=== PATIENT | male | born 1955 | race Caucasian/White ===

== ENCOUNTER 2018-02-03 12:23 | Emergency (ER) | payer OTHER ==
[~2018-02-03] VITALS: Ht 172.7 cm; Wt 73.0 kg
[2018-02-03] MEDS ORDERED: LIPITOR10 MG PO (12:30)
[2018-02-03] MEDS ORDERED: IMIPRAMINE HCL10 M2 PO (12:30)
[2018-02-03] MEDS ORDERED: ZESTRIL10 MG PO (12:30)
[2018-02-03 13:55] LABS: HEMATOCRIT 45.1 % (42.0-52.0); HEMOGLOBIN 15.1 gm/dL (14.0-18.0); MCH 31.6 pg (26.0-34.0); MCHC 33.4 g/dL (28.0-37.0); MCV 94.6 fL (80.0-100.0); MPV 7.4 fl. (7.2-11.1); NUCLEATED RBCS 0 /100WBC; PLATELET COUNT* 171 thou/uL (150-400); RBC 4.77 mil/uL (4.50-6.00); RDW-CV 13.9 % (10.5-14.5); WBC 8.8 thou/uL (4.0-11.0)
[2018-02-03 14:04] LABS: CALCIUM 9.1 mg/dL (8.5-10.1); CREATININE 1.2 mg/dL (0.6-1.3); POTASSIUM 4.5 mmol/L (3.5-5.1)
[2018-02-03 14:09] LABS: ALBUMIN 3.9 g/dL (3.4-5.0); TOTAL BILIRUBIN 0.6 mg/dL (<0.1-1.0)
[2018-02-03 14:31] LABS: ABSOLUTE LYMPHOCYTES 1.1 thou/uL (0.8-5.3); ABSOLUTE MONOCYTES 0.3 thou/uL (0.0-1.2); ABSOLUTE NEUTROPHILS 7.4 thou/uL (1.6-8.1); PLATELET ESTIMATE ADEQUATE
[2018-02-03] MEDS ORDERED: CYCLOBENZAPRINE5 MG PO (16:12)
[2018-02-03] MEDS ORDERED: MOBIC15 MG PO (16:12)
[2018-02-03] MEDS ORDERED: KEFLEX500 M1 PO (16:17)
[2018-02-03 16:53] VITALS: BP 113/75
== END 2018-02-03 17:08 | disposition home or self-care (01) ==
LOC: M.ERS 12:23
PROVIDERS: Personal Emergency Response Attendant
DX: S62.397A Other fracture of fifth metacarpal bone, left hand, initial encounter for closed fracture (principal); S52.592A Other fractures of lower end of left radius, initial encounter for closed fracture; S52.612A Displaced fracture of left ulna styloid process, initial encounter for closed fracture; S61.412A Laceration without foreign body of left hand, initial encounter; I10 Essential (primary) hypertension; E78.5 Hyperlipidemia, unspecified; V23.4XXA Motorcycle driver injured in collision with car, pick-up truck or van in traffic accident, initial encounter; Y93.89 Activity, other specified; Y92.89 Other specified places as the place of occurrence of the external cause; Y99.8 Other external cause status

== ENCOUNTER → 2018-02-08 | Outpatient (CLI) | payer OTHER ==
[~2018-02-08] MED LIST: CYCLOBENZAPRINE5 MG PO; IMIPRAMINE HCL10 M2 PO; KEFLEX500 M1 PO; LIPITOR10 MG PO; MOBIC15 MG PO; ZESTRIL10 MG PO
== END ==
LOC: M.ULTRA 15:30
DX: M79.605 Pain in left leg (principal); K40.90 Unilateral inguinal hernia, without obstruction or gangrene, not specified as recurrent

== ENCOUNTER → 2019-04-25 | Outpatient (CLI) | payer OTHER | LOC: M.RAD 09:16 | DX: R07.9 Chest pain, unspecified (principal) ==

== ENCOUNTER → 2019-05-06 | Outpatient (CLI) | payer OTHER ==
--- NOTE | 2019-05-06 19:49 | CARDNUC ---
[place] [address] CARDIAC NUCLEAR IMAGING REPORT Name: DANA MAZARIEGOS Room: [facility]#: [id number] Admission: 05/06/19 Attend Phys: Bill Austin, Discharge: Date of : 55 Date of Service: [birth year] Report #: [id number] THIS REPORT FOR: //name// APPROVED REPORT Study performed: 05/06/2019 09:19:44 Exam: Nuclear Stress Test Indication: Palpitations , Abnormal EKG, Dyspnea, Chest pain Patient Location: Out-Patient Stress Tech: Delmi Bourgeois Stress Nurse: Masha Rose RN Ht: 5 ft 8 in Wt: 165 lbs BSA: 1.88 m2 BMI: 25.08 Medical History Medical History: Hyperlipidemia, HTN Allergies: No known drug allergies Cardiac Risk Factors: age, HTN, Hyperlipidemia, FHX of CAD Exercise History: Physically active Stress Test Details Stress Test: Exercise stress testing was performed using a Chip protocol. HR Resting HR: 71 bpm Max Heart Rate (APMHR): 157 bpm Max HR Achieved: 152 bpm Target HR (85% APMHR): 133 bpm % of APMHR: 96 Recovery HR: 104 bpm HR response to stress: Normal HR response to stress BP Resting BP: 109/66 mmHg Max BP: 172/91 mmHg BP response to stress: Normal blood pressure response to stress. ECG Resting ECG: Sinus Rhythm Stress ECG: Sinus Tachycardia ST Change: None Arrhythmia: None Recovery ECG: Sinus Rhythm Recovery ST Change: [place] [address] CARDIAC NUCLEAR IMAGING REPORT Name: DANA MAZARIEGOS Room: [facility]#: [id number] Admission: 05/06/19 Attend Phys: Bill Austin, Discharge: Date of : 55 Date of Service: 05/[birth year] Report #: [id number] Recovery Arrhythmia: None Clinical Reason for Termination: Fatigue Exercise duration: 9 min 51 sec Exercise capacity: 11.51 METs Functional Aerobic Impairment 97% The patient tolerated status medical exercise without significant cardiac symptoms. Exercise was terminated due to attainment of target heart rate. Stress ECG Conclusion The baseline 12-lead EKG shows sinus rhythm without significant ST segment abnormality. EKGs obtained during and post exercise showed sinus rhythm and sinus tachycardia with no significant ST or T wave changes when compared to baseline. There were no stress-induced arrhythmias. NM EXAM: Myocardial Perfusion REST/STRESS Resting Data Rest SPECT myocardial perfusion imaging was performed in supine position 30 minutes following the intravenous injection of 11.3 mCi of Tc-99m Sestamibi. Time of rest injection: 07:50 The images were gated to evaluate regional wall motion and calculate left ventricular ejection fraction. Administration Route: IV Administration Site: Right AC Exercise Stress At peak stress, the patient was injected intravenously with 35.4mCi of Tc-99m Sestamibi. Time of stress injection: 09:30 Administration Route: IV Administration Site: Right AC Heart Rate at time of stress injection: 152 bpm. Patient continued to exercise for 1 minute(s). Gated Stress SPECT was performed 30 minutes after stress injection. The images were gated to evaluate regional wall motion and calculate left ventricular ejection fraction. Prone imaging was performed. Study Quality Study: [place] [address] CARDIAC NUCLEAR IMAGING REPORT Name: DANA MAZARIEGOS Room: [facility]#: [id number] Admission: 05/06/19 Attend Phys: Bill Austin, Discharge: Date of : 55 Date of Service: [birth year] Report #: [id number] Artifact: No artifact Study Data At rest, the left ventricular ejection fraction was 58%.. Post stress, the left ventricular ejection was 72%.. TID = 0.74. Perfusion Perfusion images show no defect to suggest infarct or ischemia. Wall Motion Normal left ventricular wall motion. Nuclear Conclusion ECG Findings: negative for ischemia Clinical Findings: negative for ischemia Nuclear Findings: negative for ischemia Exercise Capacity: normal Left Ventricular Function: normal Risk Study: low Myocardial perfusion images show no defect to suggest infarct or ischemia. Left ventricular systolic function is normal on gated studies. This is a low risk study. <Conclusion> The baseline 12-lead EKG shows sinus rhythm without significant ST segment abnormality. EKGs obtained during and post exercise showed sinus rhythm and sinus tachycardia with no significant ST or T wave changes when compared to baseline. There were no stress-induced arrhythmias. <ELECTRONICALLY SIGNED> By: Kale Bradley MD, FACC [birth year] 47 47 Kale Bradley MD, FACC /INF
== END ==
LOC: M.NUC 04-25 09:25
DX: R07.9 Chest pain, unspecified (principal); R06.09 Other forms of dyspnea; R53.82 Chronic fatigue, unspecified; R94.31 Abnormal electrocardiogram [ECG] [EKG]; I10 Essential (primary) hypertension; E78.5 Hyperlipidemia, unspecified